=== PATIENT | female | born 1975 | race African-American/Black ===

== ENCOUNTER 2018-03-27 15:01 | Outpatient (CLI) | payer OTHER, SELFPAY ==
--- NOTE | 2018-04-11 14:37 | MMO ---
BILATERAL SCREENING MAMMOGRAMS: Date: 03/27/18 HISTORY: Annual screening mammography. This patient's mammogram was interpreted with the assistance of computer-aided detection. COMPARISON: Prior studies obtained from [facility] on 04/19/16 and 05/14/14. FINDINGS: There is scattered fibroglandular density seen in each breast. There is a mass now seen within the up per outer right breast measuring 1.2 cm. No additional dominant mass or suspicious grouping of microc alcifications are seen in either breast. A few punctate, benign-appearing calcifications are seen in the right breast. IMPRESSION: BIRADS 0: Incomplete: Need Additional Imaging Evaluation and/or Prior Mammograms for Comparison Spot magnification compression views right breast, in addition to 90 degree mediolateral view, are re commended. Ultrasound exam should also be scheduled at this time if needed. The facility will notify patient of need for additional imaging services. POS: [facility]
== END 2018-03-27 15:02 | disposition home or self-care (01) ==
LOC: SCSMAMMO 15:01
PROVIDERS: ATTEND Family Medicine
DX: Z12.31 Encounter for screening mammogram for malignant neoplasm of breast (principal)
CPT/HCPCS: 77067

== ENCOUNTER 2018-05-03 08:44 | Outpatient (CLI) | payer OTHER | END 2018-05-03 08:45 | disposition home or self-care (01) | LOC: BICMAMMO 08:44 | PROVIDERS: ATTEND Family Medicine | DX: Z12.31 Encounter for screening mammogram for malignant neoplasm of breast (principal); Z80.3 Family history of malignant neoplasm of breast | CPT/HCPCS: G0279 ==